=== PATIENT | male | born 1985 | race Caucasian/White ===

== ENCOUNTER 2020-12-03 00:57 | Emergency (ER) | payer MEDICAID ==
[~2020-12-03] VITALS: Ht 177.8 cm; Wt 81.6 kg
[2020-12-03 01:08] VITALS: BP 115/72
== END 2020-12-03 02:36 | disposition left against medical advice (07) ==
LOC: EDBD 00:57 → ER 00:59
DX: R22.0 Localized swelling, mass and lump, head (principal); F10.10 Alcohol abuse, uncomplicated; Y90.9 Presence of alcohol in blood, level not specified; Z53.21 Procedure and treatment not carried out due to patient leaving prior to being seen by health care provider; Y08.89XA Assault by other specified means, initial encounter; Y93.89 Activity, other specified; Y92.89 Other specified places as the place of occurrence of the external cause; Y99.8 Other external cause status